=== PATIENT | female | born 1965 | race Caucasian/White ===

== ENCOUNTER → 2022-11-16 11:08 | Outpatient (BNVA) | payer MEDICAID, SELFPAY | PROVIDERS: PCP Clinical Nurse Specialist Adult Health; Visit Provider Clinical Nurse Specialist Adult Health | DX: Z00.00 Encounter for general adult medical examination without abnormal findings (principal) | CPT/HCPCS: 80053; 85025 ==

== ENCOUNTER 2023-05-01 07:46 | Day surgery (SDC) | payer MEDICAID, SELFPAY ==
[2023-05-01 07:57] VITALS: BMI 18.6
[2023-05-01 07:58] VITALS: BP 138/100; PULSE 104; RESP 18; TEMP 36.7; O2SAT 100
[2023-05-01] MEDS: sodium chloride 0.9% 1,000 ML 30 ML IV (08:03)
--- NOTE | 2023-05-01 08:37 | ANES.PREANE2 ---
Pre-Anesthetic Assessment Height/Weight: Height 1.68 m Weight 52.163 kg Temp Pulse Resp BP Pulse Ox O2 Del Method 98.1 F 104 H 18 138/100 100 Room Air 05/01/23 07:58 05/01/23 07:58 05/01/23 07:58 05/01/23 07:58 05/01/23 07:58 05/01/23 07:58 Preop Diagnosis: diarrhea Operation Date: 05/01/23 08:45 Proposed Procedures p Colonoscopy 20292,Z12.11,K52.9(Not Applicable) - Elias Smith, DO Was Beta Emmy taken within 24 hours: N/A Was Clonidine taken within 24 hours: N/A Last intake: Intake Last Liquid Date 04/30/23 Last Liquid Time 22:00 Last Solid Date 04/29/23 Last Solid Time 18:00 Social No alcohol 1 pack(s) per day last cig last night Exam alert, oriented x 3, clear to auscultation bilaterally and regular rate & rhythm Airway Submandibular: within normal limits Cervical ROM: within normal limits Mallampati: Class I History/ROS No significant history except as noted and No significant complaints Pulmonary smoker CV/HEM None reported None reported Hepatic None reported GI None reported Metabolic None reported Musc/skel None reported Neuropsych Anxiety Anesthetic Plan ASA status: 2 Anesthesia: Anesthesia Evaluation and MAC Risk of > 500 ml blood loss (7ml/kg in children): Yes, adequate IV access and fluids planned Medications/Allergies Home Medications Medication Instructions Recorded Confirmed Last Taken Type nicotine 14 mg/24 hr daily 1 patch transdermal DAILY #14 ea 02/16/22 05/01/23 04/30/23 Rx transdermal patch nicotine 7 mg/24 hr daily 1 patch transdermal Q24H #14 ea 02/16/22 05/01/23 04/30/23 Rx transdermal patch estradiol 2 mg tablet 1 mg PO DAILY #90 tabs 08/17/22 05/01/23 04/30/23 Rx diazepam 5 mg tablet 5 mg PO .qhs #30 tabs 02/22/23 05/01/23 04/30/23 Rx multivitamin with minerals 1 tab PO DAILY 04/29/23 05/01/23 04/30/23 History (Hair,Skin and Nails tablet) triamcinolone acetonide 0.1 % 1 applic topical DAILY PRN Outbreak 10/05/01/23 04/30/23 History topical cream vitamin B complex 1 tab PO DAILY 04/29/23 05/01/23 04/30/23 History Allergies Allergy/AdvReac Type Severity Reaction Status Date / Time No Known Allergies Allergy Verified 05/01/23 07:55 Current Medications Generic Name Dose Route Start Last Admin Trade Name Freq PRN Reason Stop Dose Admin Sodium Chloride 1,000 mls @ 30 mls/hr 05/01/23 08:00 05/01/23 08:03 Sodium Chloride 0.9% IV 05/02/23 07:59 30 mls/hr .Q24H BRANDEN Administration PFSH Anesthesia Medical History Insomnia Postmenopausal Screening for colon cancer Tobacco dependence Surgical History History of hysterectomy Family History Mother Cancer Ovarian Father Cancer Paternal grandfather had stomach cancer Social History Smoking and tobacco/nicotine status: current some day tobacco/nicotine user Quit status (tobacco/nicotine): quit date established Alcohol intake: never Substance/Drug Use: never Data Anesthesia Cardiac Studies: No Data to Display
--- NOTE | 2023-05-01 09:05 | PM.HP ---
Providers/Chief Complaint Primary Care Provider: Sarthak Guerrero Chief Complaint: Z12.11, K52.9 History of Present Illness Heike Medina is a 58 year old female Review of Systems General: Reports: 10 or more systems reviewed and unremarkable except in HPI and below Medications/Allergies Home Medications Medication Instructions Recorded Confirmed Last Taken Type nicotine 14 mg/24 hr daily 1 patch transdermal DAILY #14 ea 02/16/22 05/01/23 04/30/23 Rx transdermal patch nicotine 7 mg/24 hr daily 1 patch transdermal Q24H #14 ea 02/16/22 05/01/23 04/30/23 Rx transdermal patch estradiol 2 mg tablet 1 mg PO DAILY #90 tabs 08/17/22 05/01/23 04/30/23 Rx diazepam 5 mg tablet 5 mg PO .qhs #30 tabs 02/22/23 05/01/23 04/30/23 Rx multivitamin with minerals 1 tab PO DAILY 04/29/23 05/01/23 04/30/23 History (Hair,Skin and Nails tablet) triamcinolone acetonide 0.1 % 1 applic topical DAILY PRN Outbreak 04/29/23 05/01/23 04/30/23 History topical cream vitamin B complex 1 tab PO DAILY 04/29/23 05/01/23 04/30/23 History Allergies Allergy/AdvReac Type Severity Reaction Status Date / Time No Known Allergies Allergy Verified 05/01/23 07:55 PFSH Acute PFSH: Medical History Insomnia Postmenopausal Screening for colon cancer Tobacco dependence Surgical History History of hysterectomy Family History Mother Cancer Ovarian Father Cancer Paternal grandfather had stomach cancer Social History Smoking and tobacco/nicotine status: current some day tobacco/nicotine user Quit status (tobacco/nicotine): quit date established Alcohol intake: never Substance/Drug Use: never Vitals/I&O/Wt Last Vital Signs Temp 98.1 F 05/01/23 07:58 Pulse 104 H 05/01/23 07:58 Resp 18 05/01/23 07:58 BP 138/100 05/01/23 07:58 Pulse Ox 100 05/01/23 07:58 O2 Del Method Room Air 05/01/23 07:58 Weight last 48 hrs Weight 115 lb A&P Assessment and plan (1) Screening for colon cancer: (2) Chronic diarrhea: Plan Colonoscopy Attestations Medical Necessity Statement*: Home Coding Level of Care Code Acute Code for Chg Fwd Diagnoses Screening for colon cancer Z12.11 Chronic diarrhea K52.9
[2023-05-01 09:28] VITALS: BP 97/77; PULSE 78; RESP 18; TEMP 36.2; O2SAT 100
[2023-05-01 09:49] VITALS: BP 112/81; PULSE 57; RESP 16; O2SAT 100
--- NOTE | 2023-05-01 13:30 | ANE.PACU2 ---
Inpatient post-anesthesia follow up: Airway intact: Yes Vital signs: Temperature 97.2 F Pulse Rate 57 Respiratory Rate 16 Blood Pressure 112/81 Pulse Oximetry 100 Oxygen Delivery Me thod Room Air Oxygen Flow Rate Fraction of Inspir ed Oxygen Hydration adequate: Yes Nausea and vomiting: No Pain level: 2 Mental status: Baseline
== END 2023-05-01 09:56 | disposition home or self-care (01) ==
PROVIDERS: PCP Clinical Nurse Specialist Adult Health; Visit Provider Surgery
PROC: 0DJD8ZZ Inspection of Lower Intestinal Tract, Via Natural or Artificial Opening Endoscopic (ICD-10-PCS; CPT 45378; principal; 2023-05-01 08:45)
DX: K52.9 Noninfective gastroenteritis and colitis, unspecified (principal); K63.5 Polyp of colon; F17.210 Nicotine dependence, cigarettes, uncomplicated
CPT/HCPCS: 45380; 45385; 82274; 83630; 87045; 87177; 87209; 87427; 87449; 87493; 88305; J2704; J7030

== ENCOUNTER 2023-06-13 16:34 | Outpatient (CLI) | payer MEDICAID, SELFPAY ==
[2023-06-14 13:35] LABS: Clostridium Difficile PCR NOT DETECTED (NOT DETECTED)
== END 2023-06-13 16:35 | disposition home or self-care (01) ==
PROVIDERS: PCP Clinical Nurse Specialist Adult Health; Visit Provider Surgery
DX: K52.9 Noninfective gastroenteritis and colitis, unspecified (principal)
CPT/HCPCS: 87177; 87209; 87328; 87329; 87493

== ENCOUNTER → 2024-12-07 11:44 | Outpatient (BNVA) | payer OTHER, SELFPAY | PROVIDERS: PCP Clinical Nurse Specialist Adult Health; Visit Provider Nurse Practitioner Family | DX: I10 Essential (primary) hypertension (principal); F51.01 Primary insomnia; R53.83 Other fatigue | CPT/HCPCS: 80053; 80061; 84439; 84443; 85025 ==